=== PATIENT | male | born 1955 | race Hispanic/Latino ===

== ENCOUNTER 2016-10-30 18:46 | Observation (INO) | payer OTHER ==
[~2016-10-30] VITALS: Ht 160 cm; Wt 68.0 kg
[~2016-10-30 18:46] MED LIST: ASPI-COR81 M1 PO; BRILINTA90 MG PO; FISH OIL500 MG PO; LISINOPRIL10 MG PO; MULTIVITAMIN1 TA1 PO; NITROGLYCER0.4 MG/H1 TOP; NITROGLYCERIN TOP; PRAVASTATIN SOD40 MG PO; PRAVASTATIN SOD80 MG PO; PRILOSEC 20MG C20 MG PO; RANEXA 500MG500 MG PO
--- NOTE | 2016-10-30 18:59 | NUR ---
PT REPORTS CHEST PAIN FOR THE PAST HOUR RADIATING INTO HIS JAW. PT HAS [place] COUPLE OF YEARS AGO. PT SEES DR. SMITH. PT REPORTS FEELING DIZZY AND NUMBNESS IN HIS JAW. PT DENIES SOB OR DIAPHORESIS.
--- NOTE | 2016-10-30 19:03 | ED CARDIAC/CP/PALPITATIONS ---
History of Present Illness General Chief Complaint: Chest Pain Stated Complaint: CHEST PAIN,RADIATING INTO JAW Source: patient, family Exam Limitations: language barrier Allergies Coded Allergies: NO KNOWN ALLERGIES (12/12/13) Triage Note: PT REPORTS CHEST PAIN FOR THE PAST HOUR RADIATING INTO HIS JAW. PT HAS [place] COUPLE OF YEARS AGO. PT SEES DR. SMITH. PT REPORTS FEELING DIZZY AND NUMBNESS IN HIS JAW. PT DENIES SOB OR DIAPHORESIS. Triage Nurses Notes Reviewed? yes HPI: Patient is a 61-year-old male presents complaining of midsternal chest pain. Chest pain onset approximately one hour ago. Pain is a pressure sensation currently 5 out of 10, patient is unsure if there are any exacerbating or alleviating factors. Patient reports tingling in his jaw. At approximately noon today patient began with headache and lightheadedness. Patient has a history of myocardial infarction, CABG 3, 1 cardiac stent. Patient is unsure if this feels similar to his previous [place]. Patient feels difficulty taking a deep breath sensation. Patient denies lower extremity pain, lower externally swelling, nausea, diaphoresis. (ALEXANDER NUNEZ,DU) Vital Signs & Intake/Output Vital Signs & Intake/Output Vital Signs Date Time Temp Pulse Resp B/P B/P Pulse O2 O2 Flow FiO2 Mean Ox Delivery Rate 11/01 0817 97.9 52 18 102/64 95 Room Air 11/01 0213 98.0 55 20 110/54 97 10/31 2156 58 108/62 10/31 1557 97.4 55 20 106/70 97 10/31 1436 116/70 ED Intake and Output 11/01 0000 10/31 1200 Intake Total 713.12 610 Output Total Balance 713.12 610 Intake, IV 113.12 610 Intake, Oral 600 Patient 150 lb Weight Reconcile Medications Aspirin (Ecotrin*) 81 MG TABLET. 1 TAB PO DAILY HEART/BLOOD (Reported) Lisinopril 10 MG TABLET 1 TAB PO DAILY BP (Reported) Multivitamin (Multi-Day Vitamins) 1 EACH TABLET 1 TAB PO DAILY SUPPLEMENT ( Reported) Nitroglycerin (Nitroglycerin Patch) 0.6 MG/HOUR PATCH.TD24 1 PATCH TOP DAILY HEART (Reported) [place]-3 Fatty Acids/Fish Oil (Fish Oil 1,000 MG Softgel) 340 MG-1,000 MG CAPSULE 1 TAB PO DAILY SUPPLEMENT (Reported) Pravastatin Sodium 80 MG TABLET 1 TAB PO DAILY CHOLESTEROL (Reported) Ranolazine (Ranexa) 500 MG TAB.ER.12H 1 TAB PO BID HEART (Reported) Ticagrelor (Brilinta) 90 MG TABLET 1 TAB PO BID HEART (Reported) (SUE VINCENT,MERLENE Stubbs) Past History Travel History Traveled to [place] past 21 day No Medical History Any Pertinent Medical History? 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 No (DU RIGGS) Review of Systems Review of Systems Constitutional: Denies: chills, diaphoresis, fever. EENTM: Reports: no symptoms. Respiratory: Reports: short of breath. Denies: cough. Cardiovascular: Reports: see HPI. GI: Denies: abdominal pain, nausea, vomiting. Genitourinary: Reports: no symptoms. Musculoskeletal: Denies: back pain, neck pain. Skin: Reports: no symptoms. Neurological/Psychological: Reports: no symptoms. Hematologic/Endocrine: Reports: no symptoms. Immunologic/Allergic: Reports: no symptoms. (DU RIGGS) Physical Exam Physical Exam General Appearance: well developed/nourished, alert, awake Head: atraumatic, normal appearance Eyes: Bilateral: normal appearance, PERRL, EOMI. Ears, Nose, Throat: normal pharynx, normal ENT inspection, hearing grossly normal Neck: normal inspection, supple, full range of motion Respiratory: normal breath sounds, chest non-tender, no respiratory distress, lungs clear Cardiovascular: regular rate/rhythm (no appreciable murmur) Peripheral Pulses: 2+ radial (R), 2+ radial (L), 2+ dorsalis pedis (R), 2+ dorsalis pedis (L) Gastrointestinal: soft, non-tender Back: normal inspection, normal range of motion Extremities: normal inspection, normal capillary refill, normal range of motion, no edema, no calf tenderness Neurologic/Psych: no motor/sensory deficits, awake, alert, oriented x 3, normal gait, normal mood/affect Skin: intact, normal color, warm/dry Lymphatic: no anterior cervical jasmeet Core Measures ACS in differential dx? Yes ASA ordered for poss ACS? Yes-ordered Severe Sepsis Present: No Septic Shock Present: No (DU RIGGS) Progress Differential Diagnosis: AMI, aortic dissection, atrial fibrillation, costochondritis, musculoskeletal pain, myocarditis, pericarditis, pneumothorax, pulmonary embolism, PUD/GERD, unstable angina, V-fib/V-Tach Diagnostic Imaging: Viewed by Me: Radiology Read. Discussed w/RAD: Radiology Read. CXR Impression: PATIENT: CECIL SANCHEZ PRESENT AGE: 61 PATIENT ACCOUNT NO: [id number] : 55 LOCATION: ER ORDERING PHYSICIAN: DU NUNEZ SERVICE DATE: 10/30/16 EXAM TYPE: RAD - XRY- PORTABLE CHEST XRAY EXAMINATION: XR PORTABLE CHEST CLINICAL INFORMATION: Chest pain COMPARISON: 08/26/2015 TECHNIQUE: Portable AP view of the chest was obtained. FINDINGS: Cardiac leads overlie the chest. Median sternotomy wires appear intact. The lungs are well expanded. There is no focal consolidation, edema, or effusion. No pneumothorax. The cardiomediastinal silhouette is unchanged, mildly prominent. No acute osseous abnormality. IMPRESSION: No acute pulmonary findings. DICTATED BY: FELISHA DELGADILLO MD DATE/TIME DICTATED:1958 CHHA:KASEY DATE/TIME TRANSCRIBED:10/30/161958 CONFIDENTIAL, DO NOT COPY WITHOUT APPROPRIATE AUTHORIZATION. <Electronically signed in Other Vendor System> SIGNED BY: FELISHA DELGADILLO MD 10/30/162001 Initial ED EKG: normal axis, normal intervals, normal p-waves, normal QRS complex, normal sinus rhythm, nonspecific ST T wave chg Prior EKG: changed (nonspecific lateral st/t) Rhythm Strip: normal sinus rhythm, sinus bradycardia (DU RIGGS) Plan of Care: Orders Procedure Date/time Status Nothing by Mouth 11/01 B Active PARTIAL THROMBOPLASTIN TIME 11/01 1000 Active PARTIAL THROMBOPLASTIN TIME 11/01 0300 Complete Heart Healthy Diet 10/31 L Complete PARTIAL THROMBOPLASTIN TIME 10/31 1930 Complete MYOCARDIAL PERFUSION IMAGING 10/31 1200 Active OXYGEN SETUP CHG 10/31 UNK Complete OXYGEN 10/31 UNK Complete OXYGEN TRANSPORT 10/31 UNK Complete THERAPIST ORDERS 10/31 UNK Complete Anticipated Discharge 10/31 UNK Active Current Medications Sig/Samuel Start time Last Medication Dose Stop Time Status Admin Atorvastatin Calcium 80 MG 1700 10/31 1700 AC 10/31 (Lipitor) 1755 Aspirin Buffered 81 MG DAILY 10/31 1000 AC 10/31 (Ecotrin) 1436 Lisinopril 10 MG DAILY 10/31 1000 AC 10/31 (Prinivil) 1436 Nitroglycerin 0.6 MG DAILY 10/31 1000 AC 10/31 (Transderm Nitro 1328 15MG (Nitro-Dur) 0.6MG/Hr) Ranolazine 500 MG BID 10/300 AC 10/31 (Ranexa) 215 Ticagrelor 90 MG BID 10/30 2199 AC 10/31 (Brilinta) 215 Acetaminophen 650 MG Q6P PRN 10/30 2044 AC (Tylenol) Acetaminophen/ 1 TAB Q6P PRN 10/30 2044 AC Hydrocodone Bitart (Vicodin) Oxycodone/ 2 TAB Q6P PRN 10/30 2044 AC Acetaminophen (Percocet) Heparin Sodium 25,000 UNIT Q24H 10/30 2014 AC 10/30 (Porcine) 2024 (Heparin) Sodium Chloride 500 ML Laboratory Tests 11/01/16 0300: APTT 92 H 10/31/16 1940: APTT 53 H 10/30/2016 7:20:00 PM: Discussed with Dr. Alvarado 10/30/2016 7:28:42 PM: Chest pain went from 5 out of 10 down to 4 out of 10 after 1 sublingual nitroglycerin. Systolic blood pressure 107. Will start patient on Nitropaste. 10/30/2016 7:58:40 PM: Chest pressure improved to 2-3 out of 10. Patient appears to be resting comfortably. 2020: Discussed with Dr. Smith: start on heparin, admit to telemetry for unstable angina. Dr. Alvarado discussed patient with Dr. Gomez for admission. (DU RIGGS) Comments: 10/30/2016 8:21:58 PM I've spoken with Dr. Gomez regarding admitting Cecil based on the recommendation of Dr. Smith. (MERLENE ALVARADO MD) Departure Departure Time of Disposition: 2026 Disposition: STILL A PATIENT Condition: Stable Clinical Impression Primary Impression: Unstable angina Referrals: DANICA GOMEZ MD (PCP/Family) Departure Forms: Customer Survey General Discharge Information (DU RIGGS) Admission Note Spoke With: DANICA GOMEZ MD Documentation of Exam: Documentation of any treatments & extenuating circumstances including Concerns Regarding Discharge (functional status, medication knowledge or non-compliance, living conditions, etc.) that warrant an admission rather than observation: Patient has a known history of severe coronary artery disease with prior coronary artery bypass grafting and stenting. He now presents with a chest pain syndrome concerning for cardiac pain. This places the patient at risk of acute myocardial infarction dysrhythmia dyspnea and cardiorespiratory arrest. I do not feel he is a good candidate for outpatient management under the circumstances and I feel he now requires hospitalization with continuous cardiac monitoring (to monitor for ischemic associated dysrhythmia), serial troponin determinations (2 rule out myocardial infarction), serial EKGs (2 rule out myocardial infarction or ongoing ischemia) and consideration of echocardiogram, stress testing or cardiac catheterization.. (MERLENE ALVARADO MD) Critical Care Note Critical Care Note Critical Care Time: 30-74 min (DU RIGGS) Spoke With: DANICA GOMEZ MD Documentation of Exam: Documentation of any treatments & extenuating circumstances including Concerns Regarding Discharge (functional status, medication knowledge or non-compliance, living conditions, etc.) that warrant an admission rather than observation: Patient has a known history of severe coronary artery disease with prior coronary artery bypass grafting and stenting. He now presents with a chest pain syndrome concerning for cardiac pain. This places the patient at risk of acute myocardial infarction dysrhythmia dyspnea and cardiorespiratory arrest. I do not feel he is a good candidate for outpatient management under the circumstances and I feel he now requires hospitalization with continuous cardiac monitoring (to monitor for ischemic associated dysrhythmia), serial troponin determinations (2 rule out myocardial infarction), serial EKGs (2 rule out myocardial infarction or ongoing ischemia) and consideration of echocardiogram, stress testing or cardiac catheterization.. (MERLENE ALVARADO MD)
--- NOTE | 2016-10-30 19:11 | NUR ---
PER PT HEADACHE AND RT EAR/JAW PAIN SINCE 12 NOON, TOOK TYLENOL FOR RT HAND PAIN{PREVIOUS INJURY] THEN DEVELOPED CP AND L JAW PAIN AT APPROX 6 PM, DR ALMAGUER AT BEDSIDE. PT UNABLE TO TAKE A DEEP BREATH, FEELS WARM NO ASPIRIN TONIGHT BUT TOOK HIS DOSE OF 81 MG PO ASA THIS AM. UNABLE TO TAKE DEEP BREATHE. PAIN 5/10. PA AT BEDSIDE.
[2016-10-30 19:14] LABS: ABSOLUTE BASOPHIL COUNT 0 /CUMM (0.0-0.2); ABSOLUTE EOSINOPHIL COUNT 0.1 /CUMM (0.0-0.7); ABSOLUTE GRANULOCYTE CT 2.9 /CUMM (1.4-6.5); ABSOLUTE LYMPH COUNT 2.6 /CUMM (1.2-3.4); ABSOLUTE MONOCYTE COUNT 0.7 /CUMM (0.10-0.60); BASOPHIL % 0.3 % (0.0-2.0); GRANULOCYTE % 46.4 % (42.2-75.2); HEMATOCRIT 44.5 % (42-52); MEAN CORPUSCULAR HGB CONC 33.9 G/DL (33.0-37.0); MEAN CORPUSCULAR VOLUME 97.3 FL (80.0-94.0); MEAN PLATELET VOLUME 8.9 FL (7.4-10.4); PLATELET COUNT 144 /CUMM (130-400); RBC DISTRIBUTION WIDTH 14.1 % (11.5-14.5); RED BLOOD CELL CT 4.58 /CUMM (4.70-6.10); WHITE BLOOD CELL COUNT 6.3 /CUMM (4.8-10.8)
[2016-10-30] MEDS ORDERED: BRILINTA90 M1 PO (19:14)
[2016-10-30] MEDS ORDERED: PRAVASTATIN SOD80 M2 PO (19:14)
[2016-10-30] MEDS ORDERED: LISINOPRIL10 M1 PO (19:14)
[2016-10-30] MEDS ORDERED: NITROGLYCERIN1 EAC1 TOP (19:15)
[2016-10-30] MEDS ORDERED: ASPIRIN EC81 M1 PO (19:15)
[2016-10-30] MEDS ORDERED: RANEXA500 M1 PO (19:15)
[2016-10-30] MEDS ORDERED: FISH OIL 1,0001 EAC1 PO (19:16)
[2016-10-30] MEDS ORDERED: MULTI-DAY VITA1 EACH PO (19:16)
--- NOTE | 2016-10-30 19:17 | NUR ---
PT HAS NITRO PATCH TO SUNG, 0.6 MG/HR, CHANGES EVERY [address] PER MAYRA KIM. BP 114/76. PT MEDICATED WITH 1 SL NITRO PER MAYRA Calvo FOR PAIN 11/21
--- NOTE | 2016-10-30 19:20 | NUR ---
PAIN DOWN TO 4/10 FROM 5/10 AFTER SL NITRO. BP 107/66. MAYRA Calvo MADE AWARE PT MEDICATED WITH 243 MG ASA ORDERED FOR A TOTAL OF 324 MG TODAY.
[2016-10-30 19:21] LABS: PT 11.8 SEC (9.4-12.5); PTT 32 SEC (25-37)
--- NOTE | 2016-10-30 19:39 | NUR ---
1L NS INFUSING AT 500 CC'S/HR. NITRO PATCH REMOVED AND AREA CLEANED. PORT CXR DONE. BP 110/67. HR 58. PAIN 3/10. 1 GM NITRO PASTE TO LCW ORDERED
--- NOTE | 2016-10-30 20:02 | RADIOLOGY REPORT ---
EXAMINATION: XR PORTABLE CHEST CLINICAL INFORMATION: Chest pain COMPARISON: 08/26/2015 TECHNIQUE: Portable AP view of the chest was obtained. FINDINGS: Cardiac leads overlie the chest. Median sternotomy wires appear intact. The lungs are well expanded. There is no focal consolidation, edema, or effusion. No pneumothorax. The cardiomediastinal silhouette is unchanged, mildly prominent. No acute osseous abnormality. IMPRESSION: No acute pulmonary findings.
--- NOTE | 2016-10-30 20:11 | NUR ---
PAIN DOWN TO 2/10 AFTER NITRO PASTE. NS CONTINUES TO INFUSE. BP 118/68. HR 58.
--- NOTE | 2016-10-30 20:34 | History & Physical ---
See Addendum CARLOS IVNCENT,ROWAN 10/30/162032: General Information and HPI MD Statement: I have seen and personally examined CECIL SANCHEZ and documented this H&P. The patient is a 61 year old M who presented with a patient stated chief complaint of []. Source of Information: patient, old records Exam Limitations: language barrier History of Present Illness: Patient is a 61-year-old male with a significant past medical history of CAD (s/ p stent x 90% sphaneouse vein graft and CABG x , 2008), bradycardia, HTN, HL, presented with chief complaints of chest pain associated with Jaw pain and dizziness. Patient started feeling chest pain around 5PM, when he was at work. It was constant, located on the left side of the chest, describe as kind of pressure over the chest, 5/10, radiating to jaw and associated with headache, SOB, and dizziness so he decided to come to [facility].He took his aspirin in the morning. He was given nitroglycerin in the emergency department.He felt his chest pain goes down to 2/10 at around 7PM. He's not able to guess if this was similar as he had before in 2016. He was also complaining of headache, 7/10, located on the top of the head. He denies stress, nausea, vomiting, diaphoresis, swelling in legs, Fever, chills , cough, weakness in any part of the body. He is compliant with his medication. He is following Dr. Paul in the last visit was on May 2016. Stress test was done, we will get records tmr. 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 Gomez In case of emergency. Please contact with his Son Mo - [phone] Allergies/Medications Allergies: Coded Allergies: NO KNOWN ALLERGIES (12/12/13) Home Med list Aspirin (Ecotrin*) 81 MG TABLET. 1 TAB PO DAILY HEART/BLOOD (Reported) Lisinopril 10 MG TABLET 1 TAB PO DAILY BP (Reported) Multivitamin (Multi-Day Vitamins) 1 EACH TABLET 1 TAB PO DAILY SUPPLEMENT ( Reported) Nitroglycerin (Nitroglycerin Patch) 0.6 MG/HOUR PATCH.TD24 1 PATCH TOP DAILY HEART (Reported) Eliot-3 Fatty Acids/Fish Oil (Fish Oil 1,000 MG Softgel) 340 MG-1,000 MG CAPSULE 1 TAB PO DAILY SUPPLEMENT (Reported) Pravastatin Sodium 80 MG TABLET 1 TAB PO DAILY CHOLESTEROL (Reported) Ranolazine (Ranexa) 500 MG TAB.ER.12H 1 TAB PO BID HEART (Reported) Ticagrelor (Brilinta) 90 MG TABLET 1 TAB PO BID HEART (Reported) Past History Travel History Traveled to [place] past 21 day No Medical History Neurological: NONE EENT: NONE Cardiovascular: CAD (s/p PCI and CABG), hypertension, hyperlipidemia, TRIPLE BYPASS 2009 bradycardia Respiratory: NONE Gastrointestinal: NONE Hepatic: NONE Renal: NONE Musculoskeletal: NONE Psychiatric: NONE Endocrine: NONE Blood Disorders: NONE Cancer(s): NONE 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 EENTM: Reports: no symptoms (numbness of jaw). Cardiovascular: Reports: chest pain. Denies: edema, orthopena, palpitations, peripheral edema, syncope. Respiratory: Reports: short of breath. Denies: cough, hemoptysis, orthopnea, sputum production, stridor, wheezing. GI: Denies: abdominal pain, bloating, constipation, diarrhea, distention, bowel incontinence, melena, nausea, vomiting. Genitourinary: Denies: no symptoms. Musculoskeletal: Denies: no symptoms. Skin: Denies: no symptoms. Neurological/Psychological: Reports: no symptoms (dizziness). Denies: anxiety, depressed, weakness. Exam & Diagnostic Data Last 24 Hrs of Vital Signs/I&O Vital Signs Date Time Temp Pulse Resp B/P Pulse O2 O2 Flow FiO2 Ox Delivery Rate 10/30 2104 97.4 51 18 105/70 99 Nasal 2.0L Cannula 10/30 2009 97.8 52 18 118/68 98 Nasal 2.0L Cannula 10/30 1935 58 110/67 10/30 1920 70 107/66 10/30 1911 58 114/76 10/30 1858 97.6 63 16 108/69 96 Room Air Physical Exam General Appearance Alert, Oriented X3, Cooperative, No Acute Distress Skin No Rashes, No Breakdown, No Significant Lesion, scar in middle of chest - on sternum HEENT Atraumatic, PERRLA, EOMI Neck Supple, No JVD Cardiovascular Regular Rate, Normal S1, Normal S2 Lungs Clear to Auscultation, Normal Air Movement Abdomen Soft, No Tenderness, scars in epigastrium Neurological Normal Speech, Strength at 5/5 X4 Ext Extremities No Clubbing, No Cyanosis, No Edema Vascular Normal Pulses, Pulses Symmetrical Last 24 Hrs of Labs/Ced: Laboratory Tests 10/30/161857: Anion Gap 13, Estimated GFR > 60, BUN/Creatinine Ratio 22.5, Glucose 84, Hemoglobin A1c Pending, Calcium 10.0, Magnesium 2.1, Total Bilirubin 0.7, AST 41 , ALT 62, Alkaline Phosphatase 39, Troponin I < 0.01, Total Protein 7.7, Albumin 4.7, Globulin 3.0, Albumin/Globulin Ratio 1.6, Cholesterol 176, Vitamin B12 Pending, TSH Pending, Free T4 Pending, PT 11.8, INR 1.13, APTT 32, CBC w Diff NO MAN DIFF REQ, RBC 4.58 L, MCV 97.3 H, MCH 33.0 H, RDW 14.1, MPV 8.9, Gran % 46.4, Lymphocytes % 40.8, Monocytes % 10.5 H, Eosinophils % 2.0, Basophils % 0.3, Absolute Granulocytes 2.9, Absolute Lymphocytes 2.6, Absolute Monocytes 0.7 H, Absolute Eosinophils 0.1, Absolute Basophils 0, PUBS MCHC 33.9 Diagnostic Data EKG Results EKG - NSR, HR -66, QTc -380, III - qs complex, ST depression -V4-V6 (1mm) CXR Results Chest x-ray -no any acute cardiopulmonary abnormal Assessment/Plan Assessment: Patient is a 61-year-old male with a significant past medical history of CAD (s/ p stent x 90% sphaneouse vein graft and CABG x 2008), bradycardia, HTN, HL, presented with chief complaints of chest pain associated with Jaw pain and dizziness. He was here with chest pain in aug 2015, and at that time EKG showed non specidic ST-T wave changes. Vital signs at the time of admission-temperature 97.6, pulse 63, respiratory 16, blood pressure 108/69, SPO2 96% on room air Pertinent labs - Hb -15.1, granulocyte -46.4, BEP - nl, troponin - 0.01, PT/INR -11.8/1.13 EKG - NSR, HR -66, QTc -380, III - qs complex, ST depression -V4-V6 (1mm) Chest x-ray -no any acute cardiopulmonary abnormal Plan - Acute coronary syndrome under evaluation, probably unstable angina/non-ST elevation TN. * We'll admit the patient to telemetry for further cardiac monitoring * Started patient on heparin drip * We will do serial EKGs/troponin * We will continue aspirin,ranolazine, nitroglycerin patch , and Brillinta * We will follow cardiology recommendation * We'll follow echocardiogram * We will get the patients medical records to know the result of stress test Hypertension * We will continue tab lisinopril * We will monitor BP every shift Hyperlipidemia * We will continue tab Atorvastatin GERD * We will continue * We'll keep head end of the bed elevated Diet-heart healthy diet DVT prophylaxis-ALP S/heparin CODE STATUS-full code As Ranked By This Provider Problem List: 1. Unstable angina pectoris 2. Coronary artery bypass grafts x 3 3. Benign essential hypertension 4. Hyperlipidemia Core Measures/Miscellaneous Acute Coronary Syndrome ACS Diagnosis: Yes Last Known EF % 65 ANGELICA/ARB For EF <40% Yes ASA W/I 24hr of admit Yes Beta-Zack W/I 24hrs No No Beta-Zack d/t Bradycardia LDL assessed W/I 24 hrs No Currently on Statin Yes Cerebrovascular Accident CVA/TIA Diagnosis: No Congestive Heart Failure CHF Diagnosis: No Venous Thromboembolism VTE Risk Factors: Age > 40, Obesity No [facility] VTE prophylaxis d/t: No contraindications No VTE Pharm Prophylaxis d/t: No contraindications VTE Diagnosis: No VTE Type: NONE VTE Confirmed by (Test): NONE Severe Sepsis Severe Sepsis Present: No Septic Shock Septic Shock Present: No Miscellaneous Documentation Attending Case Discussed With: DANICA GOMEZ MD Primary Care Physician: DANICA GOMEZ MD Patient sees these Specialists [facility] Blind - Dr Paul Level of Patient Care: Telemetry BELLE FONSECA 10/30/162037: Resident Review Statement Resident Statement: examined this patient, discussed with marketing intern, agreed with marketing intern, discussed with family, reviewed EMR data (avail), discussed with nursing , discussed with case mgmt, reviewed images, amended to note Other Findings: 58-year-old M with CAD s/p CABG in 2008, and NSTEMI in 2012, with a stent to the saphenous vein graft to the ramus [facility]/o chest pain. History is obtained from the patient's son Jenniffer as the patient speaks Qatari who can be reached at [phone]. According to the patient's son had sudden onset, constant left-sided chest pain that started around 5 PM this morning and was accompanied by dizziness, numbness and pain in his left side of the jaw as well as a headache. Of note patient was at work (works in of [employer]), however, was not exerting himself at the time the pain occurred. He rates his chest pain as of 5-6 out of 10 which decreased to 2 out of 3 after he was given nitroglycerin in the ED. Patient denies any nausea, vomiting, diaphoresis, palpitations, fever, chills, cough, any recent history of sick contact, but does endorse not being able to catch his breath when the symptoms occurred. He denies orthopnea, PND, lower extremity swelling shortness of breath at baseline. Of note is not been any recent changes in his medications. He denied any numbness, paresthesias or weakness in his extremities, facial asymmetry or slurred speech. Given his cardiac history, and sudden onset chest pain he decided to come to the ER for further evaluation. Of note he saw Dr. Paul back in May 2016 and had a stress test that was reportedly normal. Past surgical history is pertinent for a CABG that was treated thousand 8. Family history cannot be obtained. He is not allergic to any medications that he knows of. He denies he's never smoked, and drinks occasionally, denies illicit drug use. Vitals on admission BP: 118/68, RR: 18, Pulse 52, saturating 98% on 2.0 liters of O2. On physical exam, he is alert and oriented 3 in no acute distress lying comfortably in bed. HEENT revealed PERRLA, dry mucous membranes. Examination of the neck did not reveal an elevated JVD, and her cervical lymphadenopathy. a exam revealed chest that was clear to auscultation bilaterally. Cardiovascular exam revealed normal S1, S2, no murmurs rubs or gallops appreciated. Abdominal exam is benign with abdomen soft, nontender, nondistended normal bowel sounds heard in all 4 quadrants and well healed scar in the epigastrium. Examination of lower extremities did not reveal any edema. Neuro exam is worse unremarkable with cranial last 212 grossly intact, strength 5 out of 5 in all 4 extremities. Gait was not assessed. Labs pertinent for an H&H: 15.1/44.5, with elevated MCV, a normal WBC of 6300, and a platelet count of 144,000. Serum chemistries revealed a Na: 142, K: 4.1, HCO3: 26, BUN:13, Cr: 0.8, and glucose: 84, Ma.1. LFT's unremarkable with an AST/ALT of 62/39, troponinX1: <0.01, INR: 1.13. CXR showed no focal consolidation, edema, or effusion. No pneumothorax. The cardiomediastinal silhouette is unchanged, mildly prominent. No acute osseous abnormality. Last Echo was in May 2013 which showed left ventricular ejection fraction visually estimated at >65 %, "pseudonormal" filling pattern of the left ventricle for age (stage 2 diastolic dysfunction). EKG revealed: NSR, HR:66, AL:176ms, non-specific ST-T changes uncahnged from previous EKGs. In the ED he received ASA 325mg x1, S/L Nitro of 0.4mg x1, placed on NitroBid patch,and started on Heparin drip per ACS protocol. Assessement and Plan Admit to telemetry. # Typical Chest Pain - Differentials at this point include unstable angina (given history of CABG lack of elevation cardiac troponins, no EKG changes versus NSTEMI versus GERD - ARI risk score is 2 for UA/NSTEMI - Troponins and EKG at midnight and 6 AM Repeat echocardiogram to rule out any wall motion abnormalities and valvular pathologies Cardiology consult with Dr. Paul in a.m. Continue on heparin drip per ACS protocol Nothing by mouth after midnight for possible cath in a.m. #Coronary artery disease Continue on aspirin 81 mg daily, Reglan 1090 mg twice a day, Ranexa 500 mg twice a day and start him on atorvastatin 80 mg daily, lisinopril 10 mg daily. Of note patient is not on metoprolol for questionable bradycardia in the past Follow-up lipid panel in a.m. DVT prophylaxis On IV heparin Diet Heart healthy, nothing by mouth after midnight CODE STATUS Full code
--- NOTE | 2016-10-30 20:37 | NUR ---
PER MAYRA Calvo, NO S/S OF GI BLEEB. PT MEIDCATED WITH 4000 UNIT HEPARIN BOLUS AND HEPARIN INFUSION STARTED AT 2029 AT 816 UNITS/HR (16.3 ML/HR) NEST PTT DUE AT 2030
--- NOTE | 2016-10-30 20:57 | NUR ---
PT'S RM ASSIGNMENT 185 BED 2
--- NOTE | 2016-10-30 21:04 | NUR ---
HOUSE STAFF AT BEDSIDE FOR PATIENT EVALUATION. HR OCCASIONALLY DOWN TO 49 SB ON CM.
--- NOTE | 2016-10-30 21:24 | NUR ---
PT NPO AFTER MIDNIGHT, GIVEN WRAP, OK PER HOUSE STAFF
--- NOTE | 2016-10-30 21:33 | NUR ---
REPORT GIVEN TO FADUMO VILLAR. TRANSPORT CALLED
--- NOTE | 2016-10-30 23:07 | NUR ---
NURSING ADMISSION NOTE; PT ADMITTED WITH UNSTABEL ANGINA. CURRENTLY CHEST PAIN FREE. SON AT THE BEDSIDE TO INTERPRET. HEPARIN GTT INFUSING PER ACS PROTOCOL. TROPONIN NEGATIVE X1. 2ND DUE AT 0000. PT NPO AFTER MIDNIGHT. INTERPRETOR PHONE AT THE BEDSIDE. VSS. SB 50'S.
[2016-10-30 23:11] VITALS: BP 132/74
[2016-10-31 03:15] LABS: PTT 103 SEC (25-37)
--- NOTE | 2016-10-31 07:22 | PN- Housestaff ---
See Addendum Subjective Follow-up For: Chest pain Tele-Events Since Last Visit: Sinus rhythm HR 51-57 Bradycardia to 46 Subjective: No acute events overnight. Patient seen and examined this morning. Chest pain and shortness of breath have resolved. Patient does not have any complaints. Review of Systems Constitutional: Reports: see HPI. Objective Last 24 Hrs of Vital Signs/I&O Vital Signs Date Time Temp Pulse Resp B/P B/P Pulse O2 O2 Flow FiO2 Mean Ox Delivery Rate 10/31 1557 97.4 55 20 106/70 97 10/31 1436 116/70 10/31 1149 Nasal 2.0L Cannula 10/31 0800 95 Nasal 2.0L Cannula 10/31 0755 98.1 50 18 108/64 98 Nasal 2.0L Cannula 10/31 0000 Nasal 2.0L Cannula 10/30 2311 97.8 58 20 132/74 97 Nasal Cannula 10/30 2259 97 Nasal 2.0L Cannula 10/30 2256 54 132/74 10/30 2105 97.4 51 18 105/70 99 Nasal 2.0L Cannula 10/30 2009 97.8 52 18 118/68 98 Nasal 2.0L Cannula 10/30 1935 58 110/67 10/30 1920 70 107/66 10/30 1911 58 114/76 10/30 1859 97.6 63 16 108/69 96 Room Air Intake & Output 10/31 1600 10/31 0800 10/31 0000 Intake Total 610 1450 Output Total Balance 610 1450 Intake, IV 610 1000 Intake, Oral 450 Patient 68.039 kg 68.039 kg Weight Physical Exam General Appearance: Alert, Oriented X3, No Acute Distress HEENT: Atraumatic, Mucous Membr. moist/pink Neck: Supple Cardiovascular: Regular Rate, Normal S1, Normal S2, No Murmurs, Gallops, Rubs Lungs: Clear to Auscultation Abdomen: Soft, No Tenderness, Positive Bowel Sounds Extremities: No Clubbing, No Cyanosis, No Edema Current Medications: Current Medications Sig/Samuel Start time Last Medication Dose Route Stop Time Status Admin Acetaminophen 650 MG Q6P PRN 10/30 2044 AC PO Acetaminophen/ 1 TAB Q6P PRN 10/30 2044 AC Hydrocodone Bitart PO Aspirin 0 .STK-MED ONE 10/30 1918 DC PO Aspirin 243 MG ONCE ONE 10/30 1914 DC 10/30 PO 10/30 1916 1920 Aspirin Buffered 81 MG DAILY 10/31 1000 AC 10/31 PO 1436 Atorvastatin Calcium 80 MG 1700 10/31 1700 AC 10/31 PO 1755 Heparin Sodium 0 .STK-MED ONE 10/31 2027 DC (Porcine) .ROUTE Heparin Sodium 4,000 UNIT ONCE ONE 10/30 2014 DC 10/30 (Porcine) IV 10/30 Heparin Sodium 25,000 UNIT Q24H 10/30 2014 AC 10/30 (Porcine) IV 2024 Sodium Chloride 500 ML Lisinopril 10 MG DAILY 10/31 1000 AC 10/31 PO 143 Nitroglycerin 0.6 MG DAILY 10/31 1000 AC 10/31 TOP 1328 Nitroglycerin 0 .STK-MED ONE 10/30 193 DC TOP Nitroglycerin 1 GM ONCE ONE 10/30 1930 DC 10/30 TOP 10/30 1930 193 Nitroglycerin 0.4 MG ONCE ONE 10/30 191 DC 10/30 SL 10/31 1915 191 Oxycodone/ 2 TAB Q6P PRN 10/30 204 AC Acetaminophen PO Ranolazine 500 MG BID 10/30 2200 AC 10/31 PO 1436 Sodium Chloride 1,000 ML Q13H 10/30 211 DC 10/30 IV 10/31 1014 2212 Sodium Chloride 1,000 ML BOLUS ONE 10/30 1930 DC 10/30 IV 10/30 2128 193 Ticagrelor 90 MG BID 10/30 2200 AC 10/31 PO 1436 Last 24 Hrs of Lab/Ced Results Last 24 Hrs of Labs/Mics: Laboratory Tests 10/31/16 1110: APTT 48 H 10/31/16 0625: Anion Gap 10, Estimated GFR > 60, BUN/Creatinine Ratio 27.1 H, Troponin I < 0.01, Triglycerides 277 H, Cholesterol 146, LDL Cholesterol, Calc 57 L, HDL Cholesterol 34 L, Cholesterol/HDL Ratio 4, CBC w Diff NO MAN DIFF REQ, RBC 4.07 L, MCV 98.3 H, MCH 33.3 H, RDW 14.1, MPV 9.7, Gran % 36.1 L, Lymphocytes % 50.7, Monocytes % 10.1 H, Eosinophils % 2.8, Basophils % 0.3, Absolute Granulocytes 1.9, Absolute Lymphocytes 2.7, Absolute Monocytes 0.5, Absolute Eosinophils 0.2, Absolute Basophils 0, PUBS MCHC 33.8 10/31/16 0245: APTT 103 *H 10/31/16 0040: Troponin I < 0.01 10/30/16 1858: Anion Gap 13, Estimated GFR > 60, BUN/Creatinine Ratio 22.5, Glucose 84, Hemoglobin A1c 5.8, Calcium 10.0, Magnesium 2.1, Total Bilirubin 0.7, AST 41, ALT 62, Alkaline Phosphatase 39, Troponin I < 0.01, Total Protein 7.7, Albumin 4.7, Globulin 3.0, Albumin/Globulin Ratio 1.6, Cholesterol 176, Vitamin B12 719, TSH 2.230, Free T4 0.74 L, PT 11.8, INR 1.13, APTT 32, CBC w Diff NO MAN DIFF REQ, RBC 4.58 L, MCV 97.3 H, MCH 33.0 H, RDW 14.1, MPV 8.9, Gran % 46.4, Lymphocytes % 40.8, Monocytes % 10.5 H, Eosinophils % 2.0, Basophils % 0.3, Absolute Granulocytes 2.9, Absolute Lymphocytes 2.6, Absolute Monocytes 0.7 H, Absolute Eosinophils 0.1, Absolute Basophils 0, PUBS MCHC 33.9 Orders EKG Findings: Sinus rhythm HR 50 Non-specific T wave changes QTc 450 Radiology Findings: No acute pulmonary findings. Assessment/Plan Assessment: 61 y/o M with PMHx of HTN, HLD and CAD s/p CABG x3 who presents with chest pain. #Chest pain: Serial EKGs with no ST-T wave abnormalities. Troponins x3 negative. Per cardiology, EKG changes or troponin elevations would be expected if bypass grafts were closed as patient has no flow through his [place] coronary arteries and is dependent on bypass grafts. However unstable angina secondary to transient thrombus cannot be excluded. First part of nuclear stress test was performed today as recommended per cardiology for risk stratification. * Continue telemetry monitoring. * Cardiology following. Appreciate their recs. * Continue IV heparin. * Second part of stress test scheduled tomorrow. * Continue aspirin 81 mg PO daily and Brilinta 90 mg PO BID. * Continue nitroglycerin patch 0.6 mg, 12 hours on, 12 hours off. * ECHO pending. * Further plans pending stress test. * Consider starting PPI if patient has recurrent chest pain and stress test is normal as pain could be GI-related in etiology. * Continue Ranexa 500 mg PO BID for pain control. Diet: Heart Healthy - NPO at midnight for second part of stress test DVT PPx: IV heparin and ALPs CODE: FULL Problem List: 1. S/P CABG x 3 2. Chest pain 3. CAD (coronary artery disease) 4. Hyperlipidemia 5. HTN (hypertension) Pain Ratin Pain Location: N/A Pain Goal: Remain pain free Pain Plan: Percocet 2 tabs PO Q6H PRN for severe pain (scale 7-10) Vicodin 1 tab PO Q6H PRN for moderate pain (scale 4-6) Tylenol 650 mg PO Q6H PRN for mild pain (scale 1-3) Tomorrow's Labs & Rationales: None
[2016-10-31 07:54] LABS: ABSOLUTE BASOPHIL COUNT 0 /CUMM (0.0-0.2); ABSOLUTE EOSINOPHIL COUNT 0.2 /CUMM (0.0-0.7); ABSOLUTE GRANULOCYTE CT 1.9 /CUMM (1.4-6.5); ABSOLUTE LYMPH COUNT 2.7 /CUMM (1.2-3.4); ABSOLUTE MONOCYTE COUNT 0.5 /CUMM (0.10-0.60); BASOPHIL % 0.3 % (0.0-2.0); EOSINOPHIL % 2.8 % (0-5); GRANULOCYTE % 36.1 % (42.2-75.2); MEAN CORPUSCULAR HGB 33.3 PG (27.0-31.0); MEAN CORPUSCULAR HGB CONC 33.8 G/DL (33.0-37.0); MEAN CORPUSCULAR VOLUME 98.3 FL (80.0-94.0); MEAN PLATELET VOLUME 9.7 FL (7.4-10.4); PLATELET COUNT 121 /CUMM (130-400); RBC DISTRIBUTION WIDTH 14.1 % (11.5-14.5); RED BLOOD CELL CT 4.07 /CUMM (4.70-6.10); WHITE BLOOD CELL COUNT 5.3 /CUMM (4.8-10.8)
[2016-10-31 07:55] VITALS: BP 108/64
--- NOTE | 2016-10-31 08:52 | Cons- Cardiology ---
General Information and HPI Consulting Request Date of Consult: 10/31/16 Requested By: DANICA ALMAGUER MD History of Present Illness: Will is a 61 year old male with history of hypertension, dyslipidemia and coronary artery disease status post CABG x3. In December of 2012, the patient had a stent placed to his 90% stenosis of the saphenous vein graft to the ramus branch at the anastomosis. This was done in the setting of chest pain with a non-ST elevation RI. This patient was doing well until yesterday when he suddenly noted a left chest discomfort radiating to his left neck and jaw while at work. It was accompanied by a headache, shortness of breath and lightheadedness. This dicomfort was not clearly associated with physical activity and resolved after about two hours. In response to a prior episode of atypical chest pain this patient was risk stratified with a stress test that showed a normal EF of 59% with mild inferior wall hypokinesis. Nuclear images disclosed inferior ischemia and he demonstrated 1/[address] depressions in the inferior and lateral leads consistent with ischemia. To review the patient's prior cardiac catheterization, this patient received a BOYCE graft to the LAD, saphenous vein graft to the PDA and saphenous vein graft to the ramus branch by Dr. Glen mazno in 2008 after he presented with symptoms of myocardial ischemia. At that time, his cardiac catheterization showed a normal left main. There was a 99% stenosis at the ostium of the LAD, followed by 100% occluded mid LAD. The distal LAD filled by ejkw-cu-qnal collaterals in retrograde fashion. There was a very large ramus branch with an 80% proximal stenosis. The left circumflex was partially occluded. The right coronary artery was dominant, and was occluded proximally. This vessel received nyjro-yq-qubub and psyq-aj-vlazw collaterals. Left ventriculography at the time showed an overall EF of 45%. The patient's most recent echocardiogram showed a normal EF of greater than 60% with mild left ventricular hypertrophy and impaired LV relaxation. In terms of the cardiac valves, there was mild mitral and tricuspid regurgitation and mild aortic sclerosis and mild pulmonic insufficiency. The patient's latest lipid profile showed an LDL of 126 with an HDL of 36 and triglycerides of 427. Allergies/Medications Allergies: Coded Allergies: NO KNOWN ALLERGIES (12/12/13) Home Med List: Aspirin (Ecotrin*) 81 MG TABLET.DR 1 TAB PO DAILY HEART/BLOOD (Reported) Lisinopril 10 MG TABLET 1 TAB PO DAILY BP (Reported) Multivitamin (Multi-Day Vitamins) 1 EACH TABLET 1 TAB PO DAILY SUPPLEMENT ( Reported) Nitroglycerin (Nitroglycerin Patch) 0.6 MG/HOUR PATCH.TD24 1 PATCH TOP DAILY HEART (Reported) [place]-3 Fatty Acids/Fish Oil (Fish Oil 1,000 MG Softgel) 340 MG-1,000 MG CAPSULE 1 TAB PO DAILY SUPPLEMENT (Reported) Pravastatin Sodium 80 MG TABLET 1 TAB PO DAILY CHOLESTEROL (Reported) Ranolazine (Ranexa) 500 MG TAB.ER.12H 1 TAB PO BID HEART (Reported) Ticagrelor (Brilinta) 90 MG TABLET 1 TAB PO BID HEART (Reported) Review of Systems Review of Systems: A twelve point review of systems is unremarkable. 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 Home Services at Home: None Smoking Status: Never Smoked ETOH Use: occasional use Illicit Drug Use: denies illicit drug use Exam & Diagnostic Data Vital Signs and I&O Vital Signs Date Time Temp Pulse Resp B/P B/P Pulse O2 O2 Flow FiO2 Mean Ox Delivery Rate 10/31 0755 98.1 50 18 108/64 98 Nasal 2.0L Cannula 10/31 0000 Nasal 2.0L Cannula 10/30 2311 97.8 58 20 132/74 97 Nasal Cannula 10/309 97 Nasal 2.0L Cannula 10/31 2255 54 132/74 10/305 97.4 51 18 105/70 99 Nasal 2.0L Cannula 10/30 2009 97.8 52 18 118/68 98 Nasal 2.0L Cannula 10/30 1935 58 110/67 10/30 1920 70 107/66 10/30 1911 58 114/76 10/30 1859 97.6 63 16 108/69 96 Room Air Intake & Output 10/31 1600 10/31 0800 10/31 0000 10/30 1600 10/30 0800 10/30 0000 Intake Total 610 1450 Output Total Balance 610 1450 Intake, IV 610 1000 Intake, Oral 450 Patient 150 lb 150 lb Weight Physical Exam: General: WD/ WN male in NAD: alert and oriented x3 HEENT: NC/AT, PERRL, EOMI, clear oropharynx Neck: no JVD, no carotid bruit Heart: RRR w/o murmur Lungs: clear bilaterally Abdomen: soft, NT, +ve bowel sounds Extremities: no edema Diagnostic Data EKG Results sinus bradycardia with IVCD and non-specific T wave changes Assessment/Plan Assessment/Plan * This patient has no flow through his [place] coronaries and survives on his bypass grafts. He has demonstrated one episode of chest discomfort without any rise in cardiac enzymes or electrocardiographic changes which would be expected if a bypass graft closed. A transient thrombus causing unstable angina cannot be excluded however. Continue aspirin 81mg daily along with Brilinta at 90mg BID and add IV heparin. Continue his NTG patch at 0.6mg/hr for 12 hours daily. Continue Lisinopril and his statin. We will not initiate beta blockade due to his intrinsic bradycardia. This patient is also on Ranexa for pain control which should be continued. * We will monitor on telemetry and risk stratify with a treadmill nuclear stress test. * Obtain an echocardiogram. * We will consider a PPI if he has recurrent chest pain in association with a normal stress test. Consult Acknowledgment - Thank you for your consult request.
[2016-10-31 13:05] LABS: PTT 48 SEC (25-37)
[2016-10-31 15:57] VITALS: BP 106/70
--- NOTE | 2016-10-31 18:05 | PN- Att Addend ---
Attending Addendum Attending Brief Note 61-year-old white male with history of coronary artery disease and known to Dr. Paul who saw him this morning and gave recommendations. Patient was free of pain this morning continues on observation. Vital signs are stable has no fever , no new changes on physical his cardiac enzymes are negative so far. His monitor was okay and he had an echocardiogram will check the results and will have a chemical stress test as per cardiology's recommendations continue observation. 24 TOTALS 10/31 0000 10/30 0000 Intake Total 1450 Output Total Balance 1450 Intake, IV 1000 Intake, Oral 450 Patient 150 lb Weight Current Medications Sig/Samuel Start time Last Medication Dose Route Stop Time Status Admin Acetaminophen 650 MG Q6P PRN 10/30 2044 AC PO Acetaminophen/ 1 TAB Q6P PRN 10/30 2044 AC Hydrocodone Bitart PO Aspirin 0 .STK-MED ONE 10/30 1918 DC PO Aspirin 243 MG ONCE ONE 10/30 1914 DC 10/30 PO 10/31 1915 192 Aspirin Buffered 81 MG DAILY 10/31 1000 AC 10/31 PO 1436 Atorvastatin Calcium 80 MG 1700 10/31 1700 AC 10/31 PO 1755 Heparin Sodium 0 .STK-MED ONE 10/31 2027 DC (Porcine) .ROUTE Heparin Sodium 4,000 UNIT ONCE ONE 10/30 2014 DC 10/30 (Porcine) IV 10/30 Heparin Sodium 25,000 UNIT Q24H 10/30 2014 AC 10/30 (Porcine) IV 202 Sodium Chloride 500 ML Lisinopril 10 MG DAILY 10/31 1000 AC 10/31 PO 1436 Nitroglycerin 0.6 MG DAILY 10/31 1000 AC 10/31 TOP 1328 Nitroglycerin 0 .STK-MED ONE 10/30 1933 DC TOP Nitroglycerin 1 GM ONCE ONE 10/30 1930 DC 10/30 TOP 10/30 1930 193 Nitroglycerin 0.4 MG ONCE ONE 10/30 1914 DC 10/30 SL 10/31 1915 191 Oxycodone/ 2 TAB Q6P PRN 10/30 2044 AC Acetaminophen PO Ranolazine 500 MG BID 10/30 2200 AC 10/31 PO 1436 Sodium Chloride 1,000 ML Q13H 10/30 2115 DC 10/30 IV 10/31 1014 2212 Sodium Chloride 1,000 ML BOLUS ONE 10/30 1930 DC 10/30 IV 10/30 Ticagrelor 90 MG BID 10/300 AC 10/31 PO 1436 Laboratory Tests 10/31/16 1110: APTT 48 H 10/31/16 0625: Anion Gap 10, Estimated GFR > 60, BUN/Creatinine Ratio 27.1 H, Troponin I < 0.01, Triglycerides 277 H, Cholesterol 146, LDL Cholesterol, Calc 57 L, HDL Cholesterol 34 L, Cholesterol/HDL Ratio 4, CBC w Diff NO MAN DIFF REQ, RBC 4.07 L, MCV 98.3 H, MCH 33.3 H, RDW 14.1, MPV 9.7, Gran % 36.1 L, Lymphocytes % 50.7, Monocytes % 10.1 H, Eosinophils % 2.8, Basophils % 0.3, Absolute Granulocytes 1.9, Absolute Lymphocytes 2.7, Absolute Monocytes 0.5, Absolute Eosinophils 0.2, Absolute Basophils 0, PUBS MCHC 33.8 10/31/16 0245: APTT 103 *H 10/31/16 0040: Troponin I < 0.01 10/30/16 1858: Anion Gap 13, Estimated GFR > 60, BUN/Creatinine Ratio 22.5, Glucose 84, Hemoglobin A1c 5.8, Calcium 10.0, Magnesium 2.1, Total Bilirubin 0.7, AST 41, ALT 62, Alkaline Phosphatase 39, Troponin I < 0.01, Total Protein 7.7, Albumin 4.7, Globulin 3.0, Albumin/Globulin Ratio 1.6, Cholesterol 176, Vitamin B12 719, TSH 2.230, Free T4 0.74 L, PT 11.8, INR 1.13, APTT 32, CBC w Diff NO MAN DIFF REQ, RBC 4.58 L, MCV 97.3 H, MCH 33.0 H, RDW 14.1, MPV 8.9, Gran % 46.4, Lymphocytes % 40.8, Monocytes % 10.5 H, Eosinophils % 2.0, Basophils % 0.3, Absolute Granulocytes 2.9, Absolute Lymphocytes 2.6, Absolute Monocytes 0.7 H, Absolute Eosinophils 0.1, Absolute Basophils 0, PUBS MCHC 33.9 Continue heparin drip for now.
[2016-10-31 20:27] LABS: PTT 53 SEC (25-37)
[2016-11-01 02:13] VITALS: BP 110/54
[2016-11-01 03:37] LABS: PTT 92 SEC (25-37)
--- NOTE | 2016-11-01 07:05 | PN- Housestaff ---
Subjective Follow-up For: Chest pain Tele-Events Since Last Visit: Sinus rhythm HR 46-52 No events Subjective: No acute events overnight. Patient seen and examined this morning. He offers no complaints. He denies chest pain or shortness of breath. Review of Systems Constitutional: Reports: see HPI. Objective Last 24 Hrs of Vital Signs/I&O Vital Signs Date Time Temp Pulse Resp B/P B/P Pulse O2 O2 Flow FiO2 Mean Ox Delivery Rate 11/01 0213 98.0 55 20 110/54 97 10/31 2156 58 108/62 10/31 1557 97.4 55 20 106/70 97 10/31 1436 116/70 10/31 1149 Nasal 2.0L Cannula 10/31 0800 95 Nasal 2.0L Cannula 10/31 0755 98.1 50 18 108/64 98 Nasal 2.0L Cannula Intake & Output 11/01 0800 11/01 0000 10/31 1600 Intake Total 123.5 713.12 Output Total Balance 123.5 713.12 Intake, IV 123.5 113.12 Intake, Oral 0 600 Patient 68.039 kg Weight Physical Exam General Appearance: Alert, Oriented X3, No Acute Distress HEENT: Atraumatic, Mucous Membr. moist/pink Neck: Supple Cardiovascular: Regular Rate, Normal S1, Normal S2, No Murmurs, Gallops, Rubs Lungs: Clear to Auscultation Abdomen: Soft, No Tenderness, Positive Bowel Sounds Extremities: No Clubbing, No Cyanosis, No Edema Current Medications: Current Medications Sig/Samuel Start time Last Medication Dose Route Stop Time Status Admin Acetaminophen 650 MG Q6P PRN 10/30 2044 AC PO Acetaminophen/ 1 TAB Q6P PRN 10/30 2044 AC Hydrocodone Bitart PO Aspirin Buffered 81 MG DAILY 10/31 1000 AC 10/31 PO 1436 Atorvastatin Calcium 80 MG 1700 10/31 1700 AC 10/31 PO 1755 Heparin Sodium 2,041 UNIT ONCE ONE 10/31 2144 DC 10/31 (Porcine) IV 10/31 Heparin Sodium 5,000 UNIT .STK-MED ONE 10/31 2057 DC (Porcine) IV 10/31 2058 Heparin Sodium 25,000 UNIT Q24H 10/30 2014 AC 10/30 (Porcine) IV 2024 Sodium Chloride 500 ML Lisinopril 10 MG DAILY 04/19 1000 AC 10/31 PO 1436 Nitroglycerin 0.6 MG DAILY 10/31 1000 AC 10/31 TOP 1328 Oxycodone/ 2 TAB Q6P PRN 10/30 2045 AC Acetaminophen PO Ranolazine 500 MG BID 10/300 AC 10/31 PO 2156 Sodium Chloride 1,000 ML Q13H 10/30 2115 DC 10/30 IV 10/31 1014 2212 Ticagrelor 90 MG BID 10/30 2199 AC 10/31 PO 2156 Last 24 Hrs of Lab/Ced Results Last 24 Hrs of Labs/Mics: Laboratory Tests 11/01/16 0300: APTT 92 H 10/31/16 1940: APTT 53 H 10/31/16 1110: APTT 48 H Orders ECHO Findings: 1. Normal EF of 60%. 2. Mild left ventricular hypertrophy. 3. Trace to mild mitral regurgitation. 4. Mild to moderate tricuspid regurgitation. 5. Mild pulmonic regurgitation. Miscellaneous Findings: EXERCISE STRESS AND RESTING SPECT MYOCARDIAL PERFUSION IMAGING STUDY WITH GATED SPECT IMAGES: A small reversible perfusion abnormality is probably present in the mid and basilar segments of the inferior wall. While it is possible this is due to attenuation by the adjacent diaphragm, this abnormality is visualized only on the stress images. Inferior wall in these regions appears normal on the rest images. Left ventricular wall motion and ejection fraction are normal. Because the patient was unable to achieve an adequate heart rate response, additional regions of myocardial ischemia during exercise cannot be ruled out. Assessment/Plan Assessment: 61 y/o M with PMHx of HTN, HLD and CAD s/p CABG x3 who presents with chest pain. #Chest pain: Serial EKGs with no ST-T wave abnormalities. Troponins x3 negative. Per cardiology, EKG changes or troponin elevations would be expected if bypass grafts were closed as patient has no flow through his [place] coronary arteries and is dependent on bypass grafts. However unstable angina secondary to transient thrombus cannot be excluded. ECHO with normal LVEF of 60% and mild left ventricular hypertrophy. Stress test completed today, significant only for a small reversible perfusion abnormality present in the mid and basilar segments of the inferior wall. * Discharge home with instructions to follow up with [employer] Dr. Paul within one week fo discharge. * Continue prior to admission medications on discharge including aspirin 81 mg PO daily, Brilinta 90 mg PO BID, pravastatin 80 mg PO daily, nitroglycerin patch 0.6 mg and ranolazine 500 mg PO BID. Diet: Heart Healthy DVT PPx: IV heparin and ALPs CODE: FULL Problem List: 1. S/P CABG x 3 2. HTN (hypertension) 3. Hyperlipidemia 4. Chest pain Pain Ratin Pain Location: N/A Pain Goal: Remain pain free Pain Plan: Percocet 2 tab PO Q6H PRN for severe pain (scale 7-10) Vicodin 1 tab PO Q6H PRN for moderate pain (scale 4-6) Tylenol 650 mg PO Q6H PRN for mild pain (scale 1-3) Tomorrow's Labs & Rationales: None Discharge Plan Discharge Disposition: home Stable for Discharge? Yes Anticipated Discharge (Day): today
[2016-11-01 08:17] VITALS: BP 102/64
--- NOTE | 2016-11-01 08:26 | ECHOCARDIOGRAM REPORT ---
CECIL SANCHEZ Age: 61 : 1955 Gender: M Exam Date: 10/31/2016 13:58 Exam Location: [address] Ht (in): 63 Wt (lb): 150 BSA: 1.76 BP: 108 / 64 Ordering Physician: BELLE FONSECA MD Referring Physician: Nic Paul MD, PhD Technologist: Jodi Fairbanks [facility] Room Number: [id number] Indications: CHEST PAIN Rhythm: Sinus Technical Quality: fair FINDINGS Left Ventricle Normal left ventricular size with mild left ventricular hypertrophy. Normal systolic function with no obvious regional wall motion abnormalities. Normal left ventricular diastolic filling pattern for age. The ejection fraction is visually estimated at 60%. Right Ventricle The right ventricle is normal in size and function. Right Atrium The right atrium is normal in size. Left Atrium The left atrium is normal in size. The interatrial septum is intact. Mitral Valve The mitral valve is normal in structure and function. There is trace to mild mitral regurgitation. Aortic Valve Structurally normal aortic valve without significant sclerosis or stenosis. There is no aortic regurgitation. Tricuspid Valve The tricuspid valve is normal in structure and function. There is mild to moderate tricuspid regurgitation. Pulmonary artery systolic pressure is normal. Pulmonic Valve Structurally normal pulmonic valve. There is mild pulmonic regurgitation. Pericardium Normal pericardium without effusion. No pleural effusion. Great Vessels Normal aortic root dimension. The aortic arch and great vessels are well seen and are normal. CONCLUSIONS 1. Normal EF of 60%. 2. Mild left ventricular hypertrophy. 3. Trace to mild mitral regurgitation. 4. Mild to moderate tricuspid regurgitation. 5. Mild pulmonic regurgitation. Nic Paul M.D. (Electronically Signed) Final Date: 01 November 2016 08:25 MEASUREMENTS (Male / Female) Normal Values 2D ECHO LV Diastolic Diameter PLAX 3.8 cm 4.2 - 5.9 / 3.9 - 5.3 cm LV Systolic Diameter PLAX 2.6 cm 2.1 - 4.0 cm LV Fractional Shortening PLAX 31.6 % 25 - 46 % LV Ejection Fraction 2D Teich 60.3 % IVS Diastolic Thickness 1.2 cm LVPW Diastolic Thickness 1.2 cm LV Relative Wall Thickness 0.6 RV Internal Dim ED PLAX 2.6 cm 1.9 - 3.8 cm LVOT Diameter 2.0 cm Aortic Root Diameter 3.0 cm LA Systolic Diameter LX 4.0 cm 3.0 - 4.0 / 2.7 - 3.8 cm LA Volume 25.0 cm 18 - 58 / 22 - 52 cm Ascending Aorta Diameter 2.9 cm DOPPLER AV Peak Velocity 99.2 cm/s AV Peak Gradient 3.9 mmHg AV Mean Velocity 68.2 cm/s AV Mean Gradient 2.0 mmHg AV Velocity Time Integral 22.0 cm LVOT Peak Velocity 76.4 cm/s LVOT Peak Gradient 2.3 mmHg LVOT Mean Velocity 53.7 cm/s LVOT Mean Gradient 1.0 mmHg LVOT Velocity Time Integral 17.6 cm LVOT Stroke Volume 55.3 cm AV Area Cont Eq vti 2.5 cm AV Area Cont Eq pk 2.4 cm MV Peak Velocity 101.0 cm/s MV Peak Gradient 4.1 mmHg MV Mean Velocity 41.9 cm/s MV Mean Gradient 1.0 mmHg Mitral E Point Velocity 90.8 cm/s Mitral A Point Velocity 44.9 cm/s Mitral E to A Ratio 2.0 MV PHT Velocity 109.0 cm/s MV Deceleration [place] 567.0 cm/s MV Pressure Half Time 57.7 ms MV Area PHT 3.8 cm MV Deceleration Time 204.0 ms MR Peak Velocity 227.0 cm/s MR Peak Gradient 20.6 mmHg TR Peak Velocity 221.0 cm/s TR Peak Gradient 19.5 mmHg Right Atrial Pressure 5.0 mmHg Pulmonary Artery Systolic Pressu 24.5 mmHg Right Ventricular Systolic Press 24.5 mmHg PV Peak Velocity 133.0 cm/s PV Peak Gradient 7.1 mmHg PV Mean Velocity 79.7 cm/s PV Mean Gradient 3.0 mmHg PV Velocity Time Integral 25.9 cm LV E' Lateral Velocity 13.6 cm/s Mitral E to LV E' Lateral Ratio 6.7 LV E' Septal Velocity 6.4 cm/s Mitral E to LV E' Septal Ratio 14.1
--- NOTE | 2016-11-01 10:09 | PN- Att Addend ---
Attending Addendum Attending Brief Note Patient comfortable in bed free of pain. Vital signs are stable no fever, no new changes on physical, troponins negative. We will have a nuclear stress test in the morning him a eighth negative will start disposition plans to go home and follow with cardiology and myself. Intake & Output 11/01 1600 11/01 0800 11/01 0000 10/31 1600 10/31 0800 10/31 0000 Intake Total 123.5 713.12 610 1450 Output Total Balance 123.5 713.12 610 1450 Intake, IV 123.5 113.12 610 1000 Intake, Oral 0 600 450 Patient 150 lb 150 lb Weight Laboratory Tests 11/01/16 0840: APTT Pending 11/01/16 0300: APTT 92 H 10/31/16 1940: APTT 53 H 10/31/16 1110: APTT 48 H 10/31/16 0625: Anion Gap 10, Estimated GFR > 60, BUN/Creatinine Ratio 27.1 H, Troponin I < 0.01, Triglycerides 277 H, Cholesterol 146, LDL Cholesterol, Calc 57 L, HDL Cholesterol 34 L, Cholesterol/HDL Ratio 4, CBC w Diff NO MAN DIFF REQ, RBC 4.07 L, MCV 98.3 H, MCH 33.3 H, RDW 14.1, MPV 9.7, Gran % 36.1 L, Lymphocytes % 50.7, Monocytes % 10.1 H, Eosinophils % 2.8, Basophils % 0.3, Absolute Granulocytes 1.9, Absolute Lymphocytes 2.7, Absolute Monocytes 0.5, Absolute Eosinophils 0.2, Absolute Basophils 0, PUBS MCHC 33.8 10/31/16 0245: APTT 103 *H 10/31/16 0040: Troponin I < 0.01 10/30/16 1858: Anion Gap 13, Estimated GFR > 60, BUN/Creatinine Ratio 22.5, Glucose 84, Hemoglobin A1c 5.8, Calcium 10.0, Magnesium 2.1, Total Bilirubin 0.7, AST 41, ALT 62, Alkaline Phosphatase 39, Troponin I < 0.01, Total Protein 7.7, Albumin 4.7, Globulin 3.0, Albumin/Globulin Ratio 1.6, Cholesterol 176, Vitamin B12 719, TSH 2.230, Free T4 0.74 L, PT 11.8, INR 1.13, APTT 32, CBC w Diff NO MAN DIFF REQ, RBC 4.58 L, MCV 97.3 H, MCH 33.0 H, RDW 14.1, MPV 8.9, Gran % 46.4, Lymphocytes % 40.8, Monocytes % 10.5 H, Eosinophils % 2.0, Basophils % 0.3, Absolute Granulocytes 2.9, Absolute Lymphocytes 2.6, Absolute Monocytes 0.7 H, Absolute Eosinophils 0.1, Absolute Basophils 0, PUBS MCHC 33.9 Vital Signs Date Time Temp Pulse Resp B/P B/P Pulse O2 O2 Flow FiO2 Mean Ox Delivery Rate 11/01 0817 97.9 52 18 102/64 95 Room Air 11/01 0213 98.0 55 20 110/54 97 10/31 2156 58 108/62 10/31 1557 97.4 55 20 106/70 97 10/31 1436 116/70 10/31 1149 Nasal 2.0L Cannula Echocardiogram showed normal EF of 60%, mild left ventricular hypertrophy, trace to mild mitral regurgitation, mild to moderate tricuspid regurgitation, and mild pulmonic regurgitation
--- NOTE | 2016-11-01 13:55 | NUCLEAR MEDICINE REPORT ---
EXERCISE STRESS AND RESTING SPECT MYOCARDIAL PERFUSION IMAGING STUDY WITH GATED SPECT IMAGES: CLINICAL INDICATION: Angina. PROCEDURE: Regional myocardial perfusion was assessed using a 2 day protocol. Stress images were obtained on 11/01/2016 following the intravenous administration of 30.4 mCi Tc 99m Myoview. Stress was performed using the standard Walt protocol, with the patient reaching a peak heart rate of 72% maximal predicted heart rate. Rest images were obtained 10/31/2016 following the intravenous administration of 32 mCi Technetium 99m Myoview. Single photon emission tomographic (SPECT) images were obtained. SPECT images were acquired in a 64 x 64 matrix of 64 projections over 180 degrees. These were reconstructed into standard short axis, horizontal and vertical long axis cardiac projections. FINDINGS: The post stress images show the left ventricular chamber to be normal in size. There is mildly diminished activity in a small region involving the mid and basal segments of the inferior wall. The activity in the other [place] appears normal. The rest images show no abnormal activity have a more homogeneous distribution of activity than on the post stress images. The mild inferior wall abnormality noted on the post stress images is not present on the rest images. Activity in the other [place] is unchanged to the post stress images and appears normal. The stress images were obtained using a gated SPECT technique, which permits visualization of wall motion and calculation of the left ventricular ejection fraction. The left ventricular chamber is normal in size. No left ventricular wall motion abnormalities are present. The calculated left ventricular ejection fraction is 55% on the stress study. Compared to the previous study dated 06/10/2013, the inferior wall abnormality appears more severe and larger than minimal abnormality that may have been present in this region on that prior study. The gated images from that study are not available for comparison and the wall motion cannot be compared. Ejection fraction is not significantly changed from the previous study when it was 50%. IMPRESSION: A small reversible perfusion abnormality is probably present in the mid and basilar segments of the inferior wall. While it is possible this is due to attenuation by the adjacent diaphragm, this abnormality is visualized only on the stress images. Inferior wall in these regions appears normal on the rest images. Left ventricular wall motion and ejection fraction are normal. Because the patient was unable to achieve an adequate heart rate response, additional regions of myocardial ischemia during exercise cannot be ruled out.
[2016-11-01 14:09] LABS: PTT 60 SEC (25-37)
--- NOTE | 2016-11-01 15:12 | Patient Discharge Instructions ---
Discharge Instructions General Discharge Information You were seen/treated for: Chest pain Watch for these problems: Persistent chest pain or pressure Pain in your jaw, neck, arm, back or stomach Difficulty breathing Nausea or vomiting Cold sweat or lightheadedness Special Instructions: Please follow up with your primary care physician Dr. Lebron Gomez and substitute crossing guard Dr. Nic Paul within one week of discharge. Diet Recommended Diet: Heart Healthy Activity Full Activity/No Limits: Yes Acute Coronary Syndrome Inclusion Criteria At DC or during hospital stay patient has or had the following: ACS DIAGNOSIS No Discharge Core Measures Meds if any: Prescribed or Continued at Discharge Meds if any: NOT Prescribed or Continued at Discharge Congestive Heart Failure Inclusion Criteria At DC or during hospital stay patient has or had the following: CHF DIAGNOSIS No Discharge Core Measures Meds if any: Prescribed or Continued at Discharge Meds if any: NOT Prescribed or Continued at Discharge Cerebrovascular accident Inclusion Criteria At DC or during hospital stay patient has or had the following: CVA/TIA Diagnosis No Discharge Core Measures Meds if any: Prescribed or Continued at Discharge Meds if any: NOT Prescribed or Continued at Discharge Venous thromboembolism Inclusion Criteria VTE Diagnosis No VTE Type NONE VTE Confirmed by (Test) NONE Discharge Core Measures - Per Current guidelines, there needs to be overlap - treatment for the first 5 days of Warfarin therapy. - If discharged on Warfarin prior to 5 days of - overlap therapy, the patient will need to be - assessed for post discharge needs including - *Post discharge parental anticoagulation - *Warfarin and/or parental anticoagulation education - *Follow up date to check INR post discharge At least 5 days overlap therapy as Inpatient No Meds if any: Prescribed or Continued at Discharge Note: Overlap Therapy is Warfarin and Anticoagulant Meds if any: NOT Prescribed or Continued at Discharge
[2016-11-01 16:12] VITALS: BP 124/72
--- NOTE | 2016-11-01 18:28 | PN- Cardiology ---
Subjective Subjective: * This patient has resolution of his chest pain. * Stress test showed a small region of equivocal inferior ischemia. Objective Vital Signs and I&Os Vital Signs Date Time Temp Pulse Resp B/P B/P Pulse O2 O2 Flow FiO2 Mean Ox Delivery Rate 11/01 1612 98.0 57 20 124/72 97 Room Air 11/01 1352 118/70 11/01 1351 118/70 11/01 0817 97.9 52 18 102/64 95 Room Air 11/01 0213 98.0 55 20 110/54 97 10/31 2156 58 108/62 Intake & Output 11/01 1600 11/01 0800 11/01 0000 10/31 1600 10/31 0800 10/31 0000 Intake Total 123.5 713.12 610 1450 Output Total Balance 123.5 713.12 610 1450 Intake, IV 123.5 113.12 610 1000 Intake, Oral 0 600 450 Patient 150 lb 150 lb Weight Physical Exam: General: WD/ WN male in NAD: alert and oriented x3 Neck: no JVD, no carotid bruit Heart: RRR w/o murmur Lungs: clear bilaterally Extremities: no edema Assessment/Plan Assessment/Plan * This patient has a small region of equivocal ischemia in the inferior wall. I have a very low suspicion of graft closure since it would lead to more prominent symptoms along with more ECG changes and positive troponin. This patient had a very good exercise tolerance on his stress test without chest pain. It is okay to discharge this patient to home on his usual pre-admission medications without change with follow up in the office in one week. Continue telemetry? No
== END 2016-11-01 16:40 ==
LOC: ENRESERVDT → ENRESERVTM → ERH 18:46 → 1NO 20:25 → ERHI 20:25 → EDBEDREQ 20:49 → 1NO 21:51 → ENPENDDIS 11-01 15:19 → 1NO 11-01 16:40
PROVIDERS: Emergency Medicine; Internal Medicine Infectious Disease; ADMIT Internal Medicine
DX: R07.9 Chest pain, unspecified (principal); R68.84 Jaw pain; I25.10 Atherosclerotic heart disease of native coronary artery without angina pectoris; Z95.1 Presence of aortocoronary bypass graft; I10 Essential (primary) hypertension; E78.5 Hyperlipidemia, unspecified
CPT/HCPCS: 1328; 1425; 1748; 36415; 78452; 82436; 93005; 93010; 93016; 93017; 93306; 96361; 96374; 96376; 99291; A9502; J1644; J3490

== ENCOUNTER 2016-11-16 06:16 | Emergency (ER) | payer OTHER ==
[~2016-11-16 06:16] MED LIST changes: +ASPIRIN EC81 M1 PO; +BRILINTA90 M1 PO; +FISH OIL 1,0001 EAC1 PO; +LISINOPRIL10 M1 PO; +MULTI-DAY VITA1 EACH PO; +NITROGLYCERIN1 EAC1 TOP; +PRAVASTATIN SOD80 M2 PO; +RANEXA500 M1 PO
[2016-11-16 06:31] VITALS: BP 161/105
--- NOTE | 2016-11-16 07:11 | ED HAND/WRIST INJURY COMPLAINT ---
History of Present Illness General Chief Complaint: Hand or Wrist Injury Stated Complaint: RT HAND PAIN Source: patient, family Exam Limitations: language barrier Vital Signs & Intake/Output Vital Signs & Intake/Output Vital Signs Date Time Temp Pulse Resp B/P B/P Pulse O2 O2 Flow FiO2 Mean Ox Delivery Rate 11/16 0631 96.8 53 16 161/105 99 Room Air Room Air Allergies Coded Allergies: NO KNOWN ALLERGIES (12/12/13) Reconcile Medications Aspirin (Ecotrin*) 81 MG TABLET.DR 1 TAB PO DAILY HEART/BLOOD (Reported) Lisinopril 10 MG TABLET 1 TAB PO DAILY BP (Reported) Multivitamin (Multi-Day Vitamins) 1 EACH TABLET 1 TAB PO DAILY SUPPLEMENT ( Reported) Nitroglycerin (Nitroglycerin Patch) 0.6 MG/HOUR PATCH.TD24 1 PATCH TOP DAILY HEART (Reported) Osteen-3 Fatty Acids/Fish Oil (Fish Oil 1,000 MG Softgel) 340 MG-1,000 MG CAPSULE 1 TAB PO DAILY SUPPLEMENT (Reported) Pravastatin Sodium 80 MG TABLET 1 TAB PO DAILY CHOLESTEROL (Reported) Ranolazine (Ranexa) 500 MG TAB.ER.12H 1 TAB PO BID HEART (Reported) Ticagrelor (Brilinta) 90 MG TABLET 1 TAB PO BID HEART (Reported) Tramadol HCl 50 MG TABLET 1 TAB PO BIDP PRN PAIN Triage Note: 61YO MALE TO RM 1 FROM TRIAGE W/CO R WRIST PAIN X 1 MONTH. PT IS SWEDISH SPEAKING AND VIA SON TRANSLATING ON HIS PHONE, SON STATES "NO INJURY, NO TRAUMA. PAIN CAME OUT OF NOWHERE. PT HAD XR HERE ON SATURDAY AND HAS HAD NO WORD FROM HIS DOCTOR" PT WEARING VELCRO WRIST SPLINT ON R WRIST. Triage Nurses Notes Reviewed? yes Duration: 1 month Timing: recent history Injury Environment: home Severity: mild, moderate Method of Injury: unknown Modifying Factors: Worsens With: movement. HPI: This is a 61-year-old male with history of coronary disease on aspirin and Ventolin to presents to the ER with his son for chief complaint of one month's duration of right hyperthenar pain as well as right distal forearm pain. Denies any trauma. 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 He's been using a splint and taking Tylenol without any relief. Had outpatient x-rays done on Saturday of which he does not know the results. Patient presents this morning secondary to no pain relief from Tylenol. No fever or chills. He has some bruising over the dorsal forearm which is from an IV that he had placed 15 days ago while in the hospital. His pain started prior to that pain. Past History Travel History Traveled to [place] past 21 day No Medical History Any Pertinent Medical History? 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 No Review of Systems Review of Systems Constitutional: Denies: chills, fever. EENTM: Reports: no symptoms. Respiratory: Denies: cough, short of breath. Cardiovascular: Denies: chest pain, palpitations. GI: Reports: no symptoms. Genitourinary: Reports: no symptoms. Musculoskeletal: Reports: joint pain, muscle pain, muscle stiffness. Denies: joint swelling. Skin: Reports: no symptoms. Neurological/Psychological: Reports: no symptoms. Hematologic/Endocrine: Denies: bruising, bleeding, polyuria, polydipsia. Immunologic/Allergic: Denies: splenectomy. All Other Systems: Reviewed and Negative Physical Exam Physical Exam General Appearance: well developed/nourished, mild distress Head: atraumatic Eyes: Bilateral: PERRL, EOMI. Ears, Nose, Throat: normal pharynx, normal ENT inspection, hearing grossly normal Neck: normal inspection, supple Cardiovascular/Respiratory: normal breath sounds, regular rate/rhythm Back: normal inspection Elbow Left: normal range of motion, normal inspection Elbow Right: normal range of motion, normal inspection Forearm Left: normal range of motion, normal inspection Forearm Right: normal range of motion, normal inspection Wrist Left: normal range of motion, normal inspection Wrist Right: normal range of motion, normal inspection Hand Left: normal inspection, normal range of motion Hand Right: tender (THENAR EMINENCE) Neurologic/Tendon: normal sensation, normal motor functions, normal tendon functions Skin: intact, normal color, warm/dry Lymphatic: no anterior cervical jasmeet Progress Differential Diagnosis: fracture, sprain, CARPAL TUNNEL, TENDINITIS Plan of Care: Current Medications Sig/Samuel Start time Last Medication Dose Stop Time Status Admin Tramadol HCl 50 MG ONCE ONE 11/16 714 UNVr (Ultram) 11/17 715 XRAY NEGATIVE FOR FRACTURE. TRAMADOL ORDERED. PATIENT HAS HAND SPLINT. (YOLA VINCENT,RUPESH) Departure Departure Disposition: HOME OR SELF CARE Condition: Stable Clinical Impression Primary Impression: Hand pain, right Referrals: FRED VINCENT,RICHY ALMAGUER MD,DANICA (PCP/Family) Additional Instructions: The tramadol as directed. Please follow-up with the doctor referred to you on the discharge summary. Continue to use the hand splint as directed. Departure Forms: Customer Survey General Discharge Information Prescriptions: Current Visit Scripts Tramadol HCl 1 TAB PO BIDP PRN PAIN #20 TAB
[2016-11-16] MEDS ORDERED: TRAMADOL HCL50 M1 PO (07:16)
== END 2016-11-16 07:27 ==
LOC: ERH 06:16
DX: M79.641 Pain in right hand (principal)